=== PATIENT | male | born 1970 | race Two or more races ===

== ENCOUNTER 2023-08-17 09:05 | Emergency (ER) | payer MEDICAID ==
[~2023-08-17] VITALS: Ht 185.4 cm; Wt 83.5 kg
[2023-08-17] MEDS: OLANZAPINE 10 MG VIAL IM ONE (09:36)
[2023-08-17] MEDS ORDERED: PRED50TA PO (09:50)
[2023-08-17 10:01] VITALS: BP 126/76; TEMP 98.7; O2SAT 100
== END 2023-08-17 10:03 | disposition home or self-care (01) ==
LOC: ER 09:05
DX: J40 Bronchitis, not specified as acute or chronic (principal); Z79.899 Other long term (current) drug therapy; Z60.2 Problems related to living alone
CPT/HCPCS: 99283; 71045; 96372; J3490